=== PATIENT | female | born 1940 | race Caucasian/White ===

== ENCOUNTER → 2020-01-07 | Outpatient (CLI) | payer MEDICARE, BC ==
[2020-01-07 13:13] VITALS: BP 115/88; PULSE 107; RESP 18; TEMP 98.3
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
== END | disposition home or self-care (01) ==
LOC: PNWHC3 12:55
PROVIDERS: ATTEND Anesthesiology
DX: G89.29 Other chronic pain (principal); M48.061 Spinal stenosis, lumbar region without neurogenic claudication; M47.816 Spondylosis without myelopathy or radiculopathy, lumbar region; I10 Essential (primary) hypertension; E11.9 Type 2 diabetes mellitus without complications; N28.9 Disorder of kidney and ureter, unspecified; E78.5 Hyperlipidemia, unspecified; E11.40 Type 2 diabetes mellitus with diabetic neuropathy, unspecified; K21.9 Gastro-esophageal reflux disease without esophagitis; Z91.041 Radiographic dye allergy status; Z79.84 Long term (current) use of oral hypoglycemic drugs; Z79.82 Long term (current) use of aspirin; Z79.899 Other long term (current) drug therapy
CPT/HCPCS: 99211

== ENCOUNTER 2020-01-30 06:13 | Day surgery (SDC) | payer MEDICARE, BC ==
[2020-01-29 09:33] VITALS: BMI 34.7
[~2020-01-30 06:13] MED LIST: LACTATED RINGERS 1,000 ML IV SCH
[2020-01-30 06:47] LABS: Glucose,Whole Blood 114 mg/dL (75-99)
[2020-01-30] MEDS ORDERED: LIDOCAINE 1% (10MG/ML) FOR IV START INTRADERMA ONE (06:49)
[2020-01-30 06:53] VITALS: RESP 16; TEMP 97.9
[2020-01-30] MEDS ORDERED: PROPOFOL 10 MG/ML 20 ML VIAL IV ONE (07:20)
[2020-01-30] MEDS ORDERED: methylPREDNISolone ACETATE 40 MG/ML 1 ML VIAL ONE (07:20)
[2020-01-30] MEDS ORDERED: ROPIVACAINE 5MG/ML 20ML VIAL ONE (07:20)
--- NOTE | 2020-01-30 08:04 | P.PCN ---
Date of Procedure: 01/30/20 Procedure(s) Performed: PREOPERATIVE DIAGNOSIS: 1-Lumbar Spondylosis with Facet Arthropathy without myelopathy. 2- Lumber degenerative disc disease. POSTOPERATIVE DIAGNOSIS: 1- Lumbar Spondylosis with Facet Arthropathy without myelopathy. 2- Lumber degenerative disc disease. PROCEDURES : Bilateral Radiofrequency thermocoagulation, L3 , L4 , and L5 medial branch, with fluoroscopic guidance (fluoroscopy images available in the radiology department) ( to denervate the facet joint at L4-5 ,and L5-S1 levels ). ANESTHESIA: Monitored anesthesia care,(provided by anesthesia department ) EBL: Minimal PROCEDURE INDICATION: The patient with low back pain secondary to lumbar facet arthropathy who had more than 50% relief of her pain with previous diagnostic lumbar medial branch block with bupivacaine. And she had a good result to the previous RFA , and she is here today to have a repeat RFA PROCEDURE DESCRIPTION / TECHNIQUE: The patient was seen and identified in the preoperative area. Risks, benefits, complications, including but not limited to risk of infection ,bleeding , allergic reactions to the medications and no complete pain releife , and alternatives were discussed with the patient, the patient agreed to proceed with the procedure and signed the consent. IV was started. Vital signs remained stable throughout the procedure. Patient was taken to the OR and time out was completed. The patient was placed in the prone position on the procedure table. The lumber area was prepped and draped in the usual sterile fashion. . Vital signs were closely monitored during the procedure .IV sedation was used during the procedure to decrease patients anxiety. Using AP and then oblique fluoroscopy, the ``eye of adalberto Bob dog corresponding to the connection between the superior and transverse articular processes of right L3, L4, and L5 were identified, marked, and localized with 1% lidocaine. Subsequently, a 18 [id number] radiofrequency cannula with a 10- mm active tip was advanced guided by fluoroscopy to each of the``eyes of the Chente reddy dog at right L3, L4, and L5. Each site then underwent sensory testing at 50 Hz and 0 to 1 volt and motor testing at 2.5 Hz and 0 to 3 volt with local stimulation, but no radicular symptoms down the legs. Thereafter each sites underwent radiofrequency thermocoagulation at 80 degrees celsius for 90 seconds after injecting 0.5 ml of PF Ropivacaine 1ml, then after the thermocoagulation done , 1 ml of the block solution containing Depo-Medrol 20 mg and 3 ml of Ropivacaine 0.5% was injected at the right L3 , L4 , and L5 , levels after negative aspiration of CSF and blood and with no paresthesias. Cannulas were retracted while injecting lidocaine 1% until the needle is out. The same procedure was repeated at the level of Left L3, L4, and L5 levels. At the end of the procedure, the skin was cleansed and bandages were applied. COMPLICATIONS: No acute complications. DISPOSITION / PLANS: The patient was placed in a supine position and transferred to the recovery area in a stable condition for observation and was discharged from the recovery room after meeting discharge criteria. Home discharge instructions given to the patient by the staff. The patient was reexamined prior to discharge. The patient will schedule a follow up in the clinic in 2-4 weeks.
[2020-01-30] MEDS ORDERED: IV FLUID CONTINUATION 1,000 ML IV ONE (08:06)
[2020-01-30 08:45] VITALS: BP 128/80; PULSE 83
--- NOTE | 2020-01-30 11:53 | FL ---
Fluoroscopy HISTORY: Pain 16 seconds fluoroscopy time supplied to the referring clinician. 8 intraoperative C-arm images docum ent the procedure. See dictated report from anesthesia.
== END 2020-01-30 08:52 | disposition home or self-care (01) ==
LOC: ORPAIN 06:13
PROVIDERS: ATTEND Specialist
DX: M47.816 Spondylosis without myelopathy or radiculopathy, lumbar region (principal); M51.36 Other intervertebral disc degeneration, lumbar region; I10 Essential (primary) hypertension; E78.5 Hyperlipidemia, unspecified; E11.9 Type 2 diabetes mellitus without complications; K21.9 Gastro-esophageal reflux disease without esophagitis; Z91.041 Radiographic dye allergy status; Z79.84 Long term (current) use of oral hypoglycemic drugs; Z79.82 Long term (current) use of aspirin; Z79.899 Other long term (current) drug therapy; Z98.890 Other specified postprocedural states
CPT/HCPCS: 64635; 64636; J1030; J2704; J2795; 99152; 99153

== ENCOUNTER → 2020-02-16 | Outpatient (CLI) | payer MEDICARE, BC ==
[2020-02-16 10:46] VITALS: BP 152/91; PULSE 108; RESP 16; TEMP 97.9
--- NOTE | 2020-02-16 11:08 | P.PN ---
Subjective Progress Note Date: 02/16/20 This is a follow-up visit for this 79 years old female with a chronic history of severe low back pain she is diagnosed with lumbar spinal stenosis and lumbar spondylosis with lumbar facet arthropathy, recently we did RFA of the medial branch lumbar area patient reported that she had significant improvement of her low back pain, she denies any motor or sensory deficit she denies any change in bowel movement or urination, she is very satisfied with the result of the RFA of the medial branch Objective - Vital Signs Vital signs: Vital Signs Temp 97.9 F 02/16/20 10:37 Pulse 108 H 02/16/20 10:37 Resp 16 02/16/20 10:37 BP 152/91 02/16/20 10:37 Pulse Ox 99 02/16/20 10:37 - Exam Physical Examinations : -Constitutiona : Cooperative , not in acute distress . -HEENT : nech : supple , no Lymphadenopathy , normal thyroid size . : eyes : no ptosis , no icterus, no photophobia . - neurologic : Cranial nerve II to XII intact , no focal neurological deffecit . -psychatric : alert , oriented X 3 , appropriate affect , intact judgment and insight . -Lymphatic : no Lymphadenopathy . - musculoskeltal : Lumber spine moter stegnth lower extremities ,thigh and legs 5/5 Right side , 5/5 Left side Assessment and Plan Plan: Assessment and plan=1-lumbar spinal stenosis. 2-lumbar spondylosis with lumbar facet arthropathy without myelopathy. She did very well after her RFA of the medial branch Lumber area, she will follow up in the pain clinic when necessary. - PQRS measures = - Patient's medications are documented in the chart. -Tobacco use is negative and counseling.Given. -Patient's has received pneumococcal vaccine. -Advanced care planning discussed, patient not eligible. -Opiate contract signed. -Pain positive and follow-up visit/procedure is scheduled. -Patient's blood pressure measured [ 152/91 ] , and documented in the record ,and patient will follow up with the primary care. -Patient's weight was measured and body mass index [ 34.2 ] above the, normal limits and counseling was done. and patient instructed to follow-up with the primary care physician. -Patient was not identified as an unhealthy alcohol user Time with Patient: Less than 30
== END | disposition home or self-care (01) ==
LOC: PNWHC3 10:17
PROVIDERS: ATTEND Specialist
DX: M48.061 Spinal stenosis, lumbar region without neurogenic claudication (principal); M47.816 Spondylosis without myelopathy or radiculopathy, lumbar region
CPT/HCPCS: 99211

== ENCOUNTER → 2020-08-18 | Outpatient (CLI) | payer MEDICARE, BC ==
[2020-08-18 14:13] VITALS: BP 133/78; PULSE 106; RESP 18; TEMP 98.4
--- NOTE | 2020-08-18 14:36 | P.PN ---
Subjective Progress Note Date: 08/18/20 This is 79 years old female with a chronic history of severe low back pain, diagnosed with lumbar spondylosis with lumbar facet arthropathy without myelopathy, and lumbar degenerative disc disease, last year we have been RFA of the medial branch lumbar area, she did very well until recently when she started having severe low back pain that is constant and increases with any activity, she denies any motor or sensory deficit she denies any fever or night sweats but she denies any change in the bowel movement or urination, is constant and increases with any activity interfere with the quality of life, reported that she get more than 80% improvement of her back pain after the RFA done last year Objective - Vital Signs Vital signs: Vital Signs Temp 98.4 F 08/18/20 14:10 Pulse 106 H 08/18/20 14:10 Resp 18 08/18/20 14:10 BP 133/78 08/18/20 14:10 Pulse Ox 94 L 08/18/20 14:10 Intake & Output 08/17/20 08/18/20 08/18/20 18:59 06:59 18:59 Weight 95.254 kg - Exam Physical Examinations : -Constitutiona : Cooperative , not in acute distress . -HEENT : nech : supple , no Lymphadenopathy , normal thyroid size . : eyes : no ptosis , no icterus, no photophobia . - neurologic : Cranial nerve II to XII intact , no focal neurological deffecit . -psychatric : alert , oriented X 3 , appropriate affect , intact judgment and insight . -Lymphatic : no Lymphadenopathy . - musculoskeltal : Lumber spine moter stegnth lower extremities ,thigh and legs 5/5 Right side , 5/5 Left side deep tendon reflexes : normal Knee Jerk , normal ankle Jerk lumber facet Loading Test =positive Right , positive Left Range of motion of the lumbar spine Flexion 30 degrees, extension 10 degrees strait leg raising test = positive at 30 degree Fabere test= positive Right , and positive LT . tenderness over the Sacroiliac joint on the Right , and Left sides Assessment and Plan Plan: Assessment and plan=1-lumbar spondylosis with lumbar facet arthropathy without myelopathy. 2-lumbar degenerative disc disease. Patient could benefit from repeat RFA of the medial branch lumbar area at L3, L4, L5, bilaterally. - PQRS measures = - Patient's medications are documented in the chart. -Tobacco use is negative and counseling.Given. -Patient's has not received pneumococcal vaccine. -Advanced care planning discussed, patient not eligible. -Opiate contract not signed. -Pain positive and follow-up visit/procedure is scheduled. -Patient's blood pressure measured [ 133/78 ] , and documented in the record ,and patient will follow up with the primary care. -Patient's weight was measured and body mass index [ 33.9 ] above the normal limits and counseling was done. and patient instructed to follow-up with the primary care physician. -Patient was not identified as an unhealthy alcohol user Time with Patient: Less than 30
== END ==
LOC: PNWHC3 13:41
PROVIDERS: ATTEND Specialist
DX: M47.816 Spondylosis without myelopathy or radiculopathy, lumbar region (principal); M51.36 Other intervertebral disc degeneration, lumbar region; Z98.890 Other specified postprocedural states; Z91.041 Radiographic dye allergy status
CPT/HCPCS: 99211

== ENCOUNTER 2020-09-17 06:37 | Day surgery (SDC) | payer MEDICARE, BC ==
[2020-09-14 16:15] VITALS: BMI 33.9
[~2020-09-17 06:37] MED LIST changes: +LIDOCAINE 1% (10MG/ML) FOR IV START INTRADERMA PRN
[2020-09-17 07:21] VITALS: TEMP 97
[2020-09-17 07:32] LABS: Glucose,Whole Blood 137 mg/dL (75-99)
[2020-09-17] MEDS ORDERED: fentaNYL (PF) 50 MCG/ML 2 ML AMP ONE (07:46)
[2020-09-17] MEDS ORDERED: ROPIVACAINE 5MG/ML 20ML VIAL ONE (07:46)
[2020-09-17] MEDS ORDERED: MIDAZOLAM 2 MG/2 ML VIAL ONE (07:46)
[2020-09-17] MEDS ORDERED: methylPREDNISolone ACETATE 40 MG/ML 1 ML VIAL ONE (07:46)
--- NOTE | 2020-09-17 08:11 | P.PCN ---
Date of Procedure: 09/17/20 Procedure(s) Performed: PREOPERATIVE DIAGNOSIS: 1-Lumbar Spondylosis with Facet Arthropathy without myelopathy. 2- Lumber degenerative disc disease. POSTOPERATIVE DIAGNOSIS: 1- Lumbar Spondylosis with Facet Arthropathy without myelopathy. 2- Lumber degenerative disc disease. PROCEDURES : Bilateral Radiofrequency thermocoagulation, L3 , L4 , and L5 medial branch, with fluoroscopic guidance (fluoroscopy images available in the radiology department) ( to denervate the facet joint at L4-5 ,and L5-S1 levels ). ANESTHESIA: Monitored anesthesia care,(provided by anesthesia department ) EBL: Minimal PROCEDURE INDICATION: The patient with low back pain secondary to lumbar facet arthropathy who had more than 50% relief of her pain with previous diagnostic lumbar medial branch block with bupivacaine. And she had a good result to the previous RFA , and she is here today to have a repeat RFA PROCEDURE DESCRIPTION / TECHNIQUE: The patient was seen and identified in the preoperative area. Risks, benefits, complications, including but not limited to risk of infection ,bleeding , allergic reactions to the medications and no complete pain releife , and alternatives were discussed with the patient, the patient agreed to proceed with the procedure and signed the consent. IV was started. Vital signs remained stable throughout the procedure. Patient was taken to the OR and time out was completed. The patient was placed in the prone position on the procedure table. The lumber area was prepped and draped in the usual sterile fashion. . Vital signs were closely monitored during the procedure .IV sedation was used during the procedure to decrease patients anxiety. Using AP and then oblique fluoroscopy, the ``eye of adalberto Bob dog corresponding to the connection between the superior and transverse articular processes of right L3, L4, and L5 were identified, marked, and localized with 1% lidocaine. Subsequently, a 18 [id number] radiofrequency cannula with a 10- mm active tip was advanced guided by fluoroscopy to each of the``eyes of the Chente reddy dog at right L3, L4, and L5. Each site then underwent sensory testing at 50 Hz and 0 to 1 volt and motor testing at 2.5 Hz and 0 to 3 volt with local stimulation, but no radicular symptoms down the legs. Thereafter each sites underwent radiofrequency thermocoagulation at 80 degrees celsius for 90 seconds after injecting 0.5 ml of PF Ropivacaine 1ml, then after the thermocoagulation done , 1 ml of the block solution containing Depo-Medrol 20 mg and 3 ml of Ropivacaine 0.5% was injected at the right L3 , L4 , and L5 , levels after negative aspiration of CSF and blood and with no paresthesias. Cannulas were retracted while injecting lidocaine 1% until the needle is out. The same procedure was repeated at the level of Left L3, L4, and L5 levels. At the end of the procedure, the skin was cleansed and bandages were applied. COMPLICATIONS: No acute complications. DISPOSITION / PLANS: The patient was placed in a supine position and transferred to the recovery area in a stable condition for observation and was discharged from the recovery room after meeting discharge criteria. Home discharge instructions given to the patient by the staff. The patient was reexamined prior to discharge. The patient will schedule a follow up in the clinic in 2-4 weeks.
[2020-09-17] MEDS ORDERED: IV FLUID CONTINUATION 1,000 ML IV ONE (08:16)
[2020-09-17 08:44] VITALS: BP 126/70; PULSE 90; RESP 18
--- NOTE | 2020-09-17 09:18 | FL ---
Fluoroscopy HISTORY: Pain 22 seconds fluoroscopy time supplied to the referring clinician. 6 intraoperative C-arm images docum ent the procedure. See dictated report from anesthesia.
== END 2020-09-17 08:49 | disposition home or self-care (01) ==
LOC: ORPAIN 06:37
PROVIDERS: ATTEND Specialist
DX: M47.816 Spondylosis without myelopathy or radiculopathy, lumbar region (principal); M51.36 Other intervertebral disc degeneration, lumbar region; Z91.041 Radiographic dye allergy status; I10 Essential (primary) hypertension; E78.5 Hyperlipidemia, unspecified; E11.9 Type 2 diabetes mellitus without complications; N28.9 Disorder of kidney and ureter, unspecified; M19.90 Unspecified osteoarthritis, unspecified site; K21.9 Gastro-esophageal reflux disease without esophagitis; Z79.84 Long term (current) use of oral hypoglycemic drugs; Z79.899 Other long term (current) drug therapy
CPT/HCPCS: 64635; 64636; J2250; J1030; J3010; J2795

== ENCOUNTER → 2020-10-11 | Outpatient (CLI) | payer MEDICARE, BC ==
[2020-10-11 10:51] VITALS: BP 117/79; PULSE 111; RESP 18; TEMP 97.6
--- NOTE | 2020-10-11 11:06 | P.PN ---
Subjective Progress Note Date: 10/11/20 This is a 79-year-old lady with history of chronic axial lower back pain which seems to be mechanical in quality. The pain gets worse with ambulation and improves by sitting down. The pain does not wake the patient up at night and she denies any weight loss. She doesn't take anything for the pain as she states. She did have lumbar medial branch RFA 1 month ago which gave her 25% of pain relief. Patient denies new-onset weakness, bowel/bladder incontinence, or any other signs or symptoms of cauda equina syndrome. There are no signs of acute intoxication, and no indications of medication diversion or overuse. In addition to above, 13-point review of systems is also negative for chest pain, shortness of breath, changes in vision, changes in hearing, new onset weakness, abdominal pain, diarrhea, extreme fatigue, malaise, fever, skin changes, homicidal or suicidal ideation, or bowel or bladder incontinence. Vital Signs: Reviewed in EMR Gen: AAOx3, NAD. The patient uses a walker for ambulation HEENT: PERRLA,hearing grossly normal Pulm: resp unlabored Neck: supple, trachea midline Neuro exam of the lower extremities: Normal muscle strength bilaterally Tenderness in the paravertebral musculature: No tenderness in the lumbar area Neuro: CN II-XII grossly intact, Imaging: Reviewed in EMR/chart Assessment: Lumbar spondylosis without myelopathy Lumbar DDD Morbid obesity Plan: 1. Explanation: Opioid and psychological risk scores were reviewed. Diagnoses, prognoses, and multiple treatment options including but not limited to physical therapy, interventional therapies, adjuvant medical therapies, narcotic medication therapies, and surgery were discussed with the patient and all questions were answered to the patient's satisfaction. 2. Opioid agreement: Signed with the patient and the patient is warned not to use opioids while driving or before driving and not to combine opioids with benzodiazepines or alcohol. 3. Counseling: The patient was counseled extensively on SMOKING CESSATION, BODY MASS INDEX, EXERCISE. Specifically, the patient was instructed regarding the importance of smoking cessation, obesity, and exercise in the context of both chronic pain and overall health. 4. Procedures: None for now. We will plan on doing another lumbar medial branch RFA when her pain starts to get worse. 5. Consultations: None 6. Investigations: None 7. Medications: The patient may use Tylenol Extra Strength during the day for her pain up to 2 gr a day. 8. Disposition: Return to clinic as needed 9. Maps were reviewed and were appropriate. Objective - Vital Signs Vital signs: Vital Signs Temp 97.6 F 10/11/20 10:46 Pulse 111 H 10/11/20 10:46 Resp 18 10/11/20 10:46 BP 117/79 10/11/20 10:46 Pulse Ox 96 10/11/20 10:46
== END ==
LOC: PNWHC3 10:30
PROVIDERS: ATTEND Anesthesiology
DX: M47.816 Spondylosis without myelopathy or radiculopathy, lumbar region (principal); M51.36 Other intervertebral disc degeneration, lumbar region; E66.01 Morbid (severe) obesity due to excess calories; Z91.041 Radiographic dye allergy status
CPT/HCPCS: 99211

== ENCOUNTER → 2020-12-01 | Outpatient (CLI) | payer MEDICARE, BC ==
--- NOTE | 2020-12-02 08:35 | NM ---
EXAMINATION TYPE: NM bone scan whole body DATE OF EXAM: 12/01/2020 COMPARISON: NONE HISTORY: Lower back pain Delayed whole-body scanning was performed following the injection of 22.2 mCi Tc 99m MDP. Images acq uired 4 hours post injection. FINDINGS: There is a photopenic defects involving the bilateral knee compatible surgery. There is a photopenic defects involving bilateral hip suggest previous replacement surgery. Localized increased uptake near the distal shaft of the right hip prostheses is nonspecific. There is pain or concern for loosening correlate with triple phase bone scan. Abnormal uptake is seen throughout the vertebral column thoracic and lumbar spine moderate intensity is nonspecific but likely degenerative. Abnormal uptake involving the sacrum likely in the basis of t he patient's reported history of previous trauma correlate with x-ray. Abnormal uptake involving the shoulders and sternoclavicular joints likely degenerative or post arthr itic. Abnormal uptake involving the wrists feet likely in the basis of arthritic changes. IMPRESSION: 1. Abnormal uptake seen on the posterior image of hyperintensity involving the sacrum could be on the basis of previous trauma fracture. X-ray correlation recommended. 2. Nonspecific uptake throughout the vertebral column likely degenerative 3. Findings suggest previous surgery involving the knees and shoulders as discussed above.
== END | disposition home or self-care (01) ==
LOC: RADNMMAIN 11:02
PROVIDERS: ATTEND Physical Medicine & Rehabilitation
DX: R93.7 Abnormal findings on diagnostic imaging of other parts of musculoskeletal system (principal)
CPT/HCPCS: 78306; A9503